=== PATIENT | female | born 1980 | race Caucasian/White ===

== ENCOUNTER 2018-10-15 15:48 | Emergency (ER) | payer SELFPAY ==
[~2018-10-15] VITALS: Ht 167.6 cm; Wt 108.9 kg
[2018-10-15] MEDS ORDERED: ESCI10TA PO (16:01)
[2018-10-15] MEDS ORDERED: BUPR-42 PO (16:01)
[2018-10-15] MEDS ORDERED: NS IV 1000 ML 1,000 ML IV ONE (16:09)
[2018-10-15 16:24] LABS: BASOPHILS % (AUTO) 0 % (0-10); EOSINOPHILS # (AUTO) 0.1 10^3/uL (0.0-0.3); EOSINOPHILS % (AUTO) 2 % (0-10); HEMATOCRIT 45 % (35-52); LYMPHOCYTES # (AUTO) 0.6 X 10^3 (1.0-4.0); LYMPHOCYTES % (AUTO) 8 % (12-44); MEAN CORPUSCULAR HEMOGLOBIN 29 PG (25-34); MEAN CORPUSCULAR HGB CONC 33 G/DL (32-36); MEAN CORPUSCULAR VOLUME 86 FL (80-99); MEAN PLATELET VOLUME 10.2 FL (7.4-10.4); MONOCYTES # (AUTO) 0.3 X 10^3 (0.0-1.0); MONOCYTES % (AUTO) 4 % (0-12); NEUTROPHILS % (AUTO) 86 % (42-75); PLATELET COUNT 224 10^3/uL (130-400); RED BLOOD COUNT 5.26 10^6/uL (4.35-5.85); RED CELL DISTRIBUTION WIDTH 13.5 % (10.0-14.5); WHITE BLOOD COUNT 6.9 10^3/uL (4.3-11.0)
[2018-10-15] MEDS ORDERED: ONDANSETRON 4 MG/2 ML (SDV) Z0FRAN IVP ONE (16:30)
[2018-10-15] MEDS ORDERED: fentaNYL INJECTION 100 MCG/2 ML AMP IVP ONE (16:30)
[2018-10-15 16:37] LABS: BILIRUBIN,URINE NEGATIVE (NEGATIVE); CLARITY,URINE CLEAR; COLOR,URINE YELLOW; GLUCOSE, URINE (UA) NEGATIVE (NEGATIVE); KETONES,URINE 2+ (NEGATIVE); LEUKOCYTE ESTERASE ,URINE 1+ (NEGATIVE); NITRITE,URINE NEGATIVE (NEGATIVE); PH,URINE 5 (5-9); PROTEIN,URINE 1+ (NEGATIVE); UROBILINOGEN,URINE 1 MG/DL (NORMAL)
[2018-10-15 16:46] LABS: ALANINE AMINOTRANSFERASE 15 U/L (0-55); ALBUMIN 4.2 GM/DL (3.2-4.5); ALKALINE PHOSPHATASE 101 U/L (40-136); BILIRUBIN,TOTAL 1.1 MG/DL (0.1-1.0); BUN/CREATININE RATIO 12; CALCIUM 9.1 MG/DL (8.5-10.1); CARBON DIOXIDE 23 MMOL/L (21-32); CHLORIDE 106 MMOL/L (98-107); CREATININE SERUM 0.69 MG/DL (0.60-1.30); GFR ESTIMATED > 60; GLUCOSE 93 MG/DL (70-105); LIPASE 10 U/L (8-78); SODIUM 138 MMOL/L (135-145); TOTAL PROTEIN 7.1 GM/DL (6.4-8.2)
--- NOTE | 2018-10-15 16:51 | ED Abdominal Pain ---
General Chief Complaint: Abdominal/GI Problems Stated Complaint: ABD PROBLEMS,NOT EATING/DRINKING Nursing Triage Note: pt presents to ed with complaints of malaise and hot/cold flashes starting 0100 today. Pt reports upper abdominal pain and nausea/diahrrea starting this am. Sepsis Screen: No Definite Risk Source of Information: Patient Exam Limitations: No Limitations History of Present Illness Date Seen by Provider: Oct 15, 2018 Time Seen by Provider: 16:00 Initial Comments This 37-year-old woman presents to the emergency room with complaints of upper abdominal pain. She began feeling "funny" last night around 01:00. Then abdominal pain and diaphoresis started later in the morning around 06:30. She has been having hot and cold flashes. She is nauseated without vomiting. She has diarrhea as well. Diarrhea does not improve her pain. She has not taken any medications for these symptoms. She reports no solid food since yesterday and very minimal water today. Allergies and Home Medications Allergies Coded Allergies: Penicillins (Verified Allergy, Unknown, 10/15/18) Home Medications Ondansetron 4 Mg Tab.rapdis, 4 MG SL Q4H Prescribed by: GENE MARTINES on 10/15/18 4916 Patient Home Medication List Home Medication List Reviewed: Yes Review of Systems Review of Systems Constitutional: see HPI EENTM: No Symptoms Reported Respiratory: No Symptoms Reported Cardiovascular: No Symptoms Reported Gastrointestinal: See HPI Genitourinary: No Symptoms Reported Musculoskeletal: no symptoms reported Skin: no symptoms reported Psychiatric/Neurological: No Symptoms Reported Endocrine: No Symptoms Reported Hematologic/Lymphatic: No Symptoms Reported Past Bfmbluq-Ustews-Jrqrce Hx Past Med/Social Hx: Reviewed Nursing Past Med/Soc Hx Patient Social History Alcohol Use: Denies Use Recreational Drug Use: No Smoking Status: Never a Smoker Recent Foreign Travel: No Contact w/Someone Who Travel: No Recent Infectious Disease Expo: No Recent Hopitalizations: No Seasonal Allergies Seasonal Allergies: No Past Medical History Surgeries: Yes Section Respiratory: No Cardiac: No Neurological: No : No Last Menstrual Period: Oct 15, 2018 Genitourinary: Yes Kidney Stones Gastrointestinal: No Musculoskeletal: No Endocrine: No HEENT: No Cancer: No Psychosocial: Yes Depression Integumentary: No Blood Disorders: No Adverse Reaction/Blood Tranf: No Physical Exam Vital Signs Vital Signs - First Documented 10/15/18 10/15/18 15:55 17:44 Temp 98.4 Pulse 102 Resp 16 B/P (MAP) 118/72 (87) Pulse Ox 100 O2 Delivery Room Air Capillary Refill : Less Than 3 Seconds Height/Weight/BMI Height: 5'6.00" Weight: 240lbs. oz. 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, no motor/sensory deficits, alert, normal mood/affect, oriented x 3 Skin: normal color, warm/dry Progress/Results/Core Measures Results/Orders Lab Results Laboratory Tests Test 10/15/18 16:15 10/15/18 16:23 Range/Units White Blood Count 6.9 4.3-11.0 10^3/uL Red Blood Count 5.26 4.35-5.85 10^6/uL Hemoglobin 15.0 11.5-16.0 G/DL Hematocrit 45 35-52 % Mean Corpuscular Volume 86 80-99 FL Mean Corpuscular Hemoglobin 29 25-34 PG Mean Corpuscular Hemoglobin Concent 33 32-36 G/DL Red Cell Distribution Width 13.5 10.0-14.5 % Platelet Count 224 130-400 10^3/uL Mean Platelet Volume 10.2 7.4-10.4 FL Neutrophils (%) (Auto) 86 H 42-75 % Lymphocytes (%) (Auto) 8 L 12-44 % Monocytes (%) (Auto) 4 0-12 % Eosinophils (%) (Auto) 2 0-10 % Basophils (%) (Auto) 0 0-10 % Neutrophils # (Auto) 6.0 1.8-7.8 X 10^3 Lymphocytes # (Auto) 0.6 L 1.0-4.0 X 10^3 Monocytes # (Auto) 0.3 0.0-1.0 X 10^3 Eosinophils # (Auto) 0.1 0.0-0.3 10^3/uL Basophils # (Auto) 0.0 0.0-0.1 10^3/uL Neutrophils % (Manual) 81 % Lymphocytes % (Manual) 5 % Monocytes % (Manual) 5 % Eosinophils % (Manual) 3 % Basophils % (Manual) 0 % Band Neutrophils 3 % Reactive Lymphocytes 3 % Toxic Granulation 3+ Blood Morphology Comment NORMAL Sodium Level 138 135-145 MMOL/L Potassium Level 4.0 3.6-5.0 MMOL/L Chloride Level 106 98-107 MMOL/L Carbon Dioxide Level 23 21-32 MMOL/L Anion Gap 9 5-14 MMOL/L Blood Urea Nitrogen 8 7-18 MG/DL Creatinine 0.69 0.60-1.30 MG/DL Estimat Glomerular Filtration Rate > 60 BUN/Creatinine Ratio 12 Glucose Level 93 70-105 MG/DL Calcium Level 9.1 8.5-10.1 MG/DL Corrected Calcium 8.9 8.5-10.1 MG/DL Total Bilirubin 1.1 H 0.1-1.0 MG/DL Aspartate Amino Transf (AST/SGOT) 15 5-34 U/L Alanine Aminotransferase (ALT/SGPT) 15 0-55 U/L Alkaline Phosphatase 101 40-136 U/L Total Protein 7.1 6.4-8.2 GM/DL Albumin 4.2 3.2-4.5 GM/DL Lipase 10 8-78 U/L Serum Test, Qualitative NEGATIVE NEGATIVE Urine Color YELLOW Urine Clarity CLEAR Urine pH 5 5-9 Urine Specific [place] 1.020 1.016-1.022 Urine Protein 1+ H NEGATIVE Urine Glucose (UA) NEGATIVE NEGATIVE Urine Ketones 2+ H NEGATIVE Urine Nitrite NEGATIVE NEGATIVE Urine Bilirubin NEGATIVE NEGATIVE Urine Urobilinogen 1 NORMAL MG/DL Urine Leukocyte Esterase 1+ H NEGATIVE Urine RBC (Auto) 5+ H NEGATIVE Urine RBC >100 H /HPF Urine WBC 2-5 /HPF Urine Squamous Epithelial Cells 0-2 /HPF Urine Crystals NONE /LPF Urine Bacteria FEW H /HPF Urine Casts NONE /LPF Urine Mucus NEGATIVE /LPF Urine Culture Indicated NO My Orders Orders - GENE BOWIE MD Gallbladder [id number] (10/15/18 16:08) Cbc With Automated Diff (10/15/18 16:09) Comprehensive Metabolic Panel (10/15/18 16:09) Hcg,Qualitative Serum (10/15/18 16:09) Lipase (10/15/18 16:09) Ua Culture If Indicated (10/15/18 16:09) Saline Lock/Iv-Start (10/15/18 16:09) Ns Iv 1000 Ml (Sodium Chloride 0.9%) (10/15/18 16:09) Ondansetron Injection (Zofran Injectio (10/15/18 16:30) Fentanyl Injection (Sublimaze Injection (10/15/18 16:30) Lidocaine 2% Viscous 15 Ml (Xylocaine Vi (10/15/18 17:30) Antacid Suspension (Mylanta Suspension (10/15/18 17:30) Famotidine Injection (Pepcid Injection) (10/15/18 17:17) Manual Differential (10/15/18 16:15) Medications Given in ED Vital Signs/I&O 10/15/18 10/15/18 15:55 17:44 Temp 98.4 98.6 Pulse 102 83 Resp 16 13 B/P (MAP) 118/72 (87) 133/77 (95) Pulse Ox 100 100 O2 Delivery Room Air Blood Pressure Mean: 87 Progress Progress Note #1: Time: 16:30 Progress Note Patient received fentanyl and Zofran for her symptoms. IV fluids were initiated. Labs were ordered along with a gallbladder ultrasound for further assessment. Progress Note #2: Progress Note Gallbladder ultrasound was obtained. No pathology was identified. Patient was further treated with Pepcid and GI cocktail. She was dismissed in improved condition. Diagnostic Imaging Diagonstic Imaging: Ultrasound Plain Films/CT/US/NM/MRI: abdomen Comments NAME: IRENE COUCH [facility] REC#: [id number] PT STATUS: DEP ER : 1980 PHYSICIAN: GENE BOWIE MD ADMIT DATE: 10/15/18/ER Signed Date of Exam: 10/15/18 US GALLBLADDER [id number] PROCEDURE: US Gallbladder. TECHNIQUE: Multiple real-time grayscale images were obtained over the right upper quadrant in various projections. INDICATION: Abdominal pain. COMPARISON: None available. FINDINGS: Liver: Normal in size and echotexture. No focal lesion is seen. Gallbladder: Normal. No stones or gallbladder wall thickening. No pericholecystic fluid. Negative sonographic Weber's sign. Biliary Tree: No intrahepatic or extrahepatic bile duct dilation is identified. The proximal common bile duct measures 0.3 cm in diameter. Pancreas: No abnormality in the visualized portions of the pancreas. The distal body and tail are not well seen. Right kidney: Normal parenchymal echotexture and thickness. No hydronephrosis, stone or mass. Incidental note is made of a hypoechoic 1.4 x 1.6 x 1.3 cm lesion in the superior pole, with increased through transmission of sound, likely representing a cyst. IMPRESSION: Abdominal ultrasound is within normal limits. Incidental node is made of a probable right upper pole renal cyst. Dictated by: Dictated on workstation # [id number] Dict: 10/15/189 Trans: 10/15/182357 Interpreted by: SURENDRA INMAN DO Electronically signed by: SURENDRA INMAN DO 10/15/18 Departure Impression Primary Impression: Nausea vomiting and diarrhea Additional Impression: Epigastric pain Disposition: 01 HOME, SELF-CARE Condition: Improved Departure-Patient Inst. Decision time for Depature: 17:34 Referrals: NO,LOCAL PHYSICIAN (PCP/Family) Primary Care Physician Patient Instructions: Acute Abdomen (Belly Pain), Adult (DC), Viral Gastroenteritis Add. Discharge Instructions: Drink clear liquids tonight. If you're feeling better tomorrow, gradually advance your diet with small quantities of bland food as tolerated. Use Zofran (ondansetron) as prescribed for nausea and vomiting. Return to care if you have worsening symptoms. If needed, you may use an antacid medication such as Tums, omeprazole, and/or Pepcid. All discharge instructions reviewed with patient and/or family. Voiced understanding. Scripts Ondansetron (Ondansetron Odt) 4 Mg Tab.rapdis 4 MG SL Q4H, #10 TAB Prov: GENE BOWIE MD 10/15/18 Work/School Note: Work Release Form Date Seen in the Emergency Department: Oct 15, 2018 Return to Work: Oct 17, 2018 Restrictions: No Restrictions GENE BOWIE MD Oct 15, 2018 16:51
[2018-10-15 17:03] LABS: BACTERIA,URINE FEW /HPF; RBC,URINE >100 /HPF; SQUAMOUS EPITHELIAL CELL,UR 0-2 /HPF
[2018-10-15] MEDS ORDERED: FAMOTIDINE 20MG/2ML IV (PEPCID) IV STA (17:17)
--- NOTE | 2018-10-15 17:27 | Diagnostic Imaging Report ---
PROCEDURE: US Gallbladder. TECHNIQUE: Multiple real-time grayscale images were obtained over the right upper quadrant in various projections. INDICATION: Abdominal pain. COMPARISON: None available. FINDINGS: Liver: Normal in size and echotexture. No focal lesion is seen. Gallbladder: Normal. No stones or gallbladder wall thickening. No pericholecystic fluid. Negative sonographic Weber's sign. Biliary Tree: No intrahepatic or extrahepatic bile duct dilation is identified. The proximal common bile duct measures 0.3 cm in diameter. Pancreas: No abnormality in the visualized portions of the pancreas. The distal body and tail are not well seen. Right kidney: Normal parenchymal echotexture and thickness. No hydronephrosis, stone or mass. Incidental note is made of a hypoechoic 1.4 x 1.6 x 1.3 cm lesion in the superior pole, with increased through transmission of sound, likely representing a cyst. IMPRESSION: Abdominal ultrasound is within normal limits. Incidental node is made of a probable right upper pole renal cyst. Dictated by: Dictated on workstation # [id number]
[2018-10-15] MEDS ORDERED: LIDOCAINE 2% VISCOUS 15 ML UDC PO ONE (17:30)
[2018-10-15] MEDS ORDERED: ANTACID SUSP 30 ML UDC (MYLANTA) PO ONE (17:30)
[2018-10-15] MEDS ORDERED: ONDA4TAB11 SL (17:35)
[2018-10-15 17:44] VITALS: BP 133/77
--- OUTSIDE RECORDS SUMMARY | 2018-10-16 07:45 | XMS REPORT | CCD ---
Author Author GRACIA NGUYEN Unknown Address [address] [facility] [address] [place], [place] [id number] Care Team Providers Care Accounts Payable Accountant Name Role Phone STIVEN ROSE, SURENDRA Powell SURENDRA SALEEM MD Vital Signs Unknown or Not Available. Allergies Allergy Code Allergy Type Reaction Status Unknown Code - 0 0 Propensity to adverse reactions Active PCN (penicillin) 0 Drug allergy Active PENICILLIN 96875 Drug allergy HIVES Active Procedures Unknown or Not Available. History of Immunizations Immunization Code Date MMR 03 01/21/1992 Td (adult), adsorbed 09 03/25/1996 Hep B, adult 43 10/10/2001 Novel [id number] 127 09/02/2009 Problems Unknown or Not Available. Results Unknown or Not Available. Active Medications Unknown or Not Available. Medications Administered During Visit Unknown or Not Available. Encounters Encounter Diagnosis Diagnosis Code Start Date Infestation by Sarcoptes scabiei shanna hominis [id number] 2015 Social History Smoking Status Code Start Date End Date Never smoker 598821587 Patient Decision Aids Unknown or Not Available. Discharge Instructions You were admitted to [facility] on 08/03/2016 12:49 with a principal diagnosis of Scabies You were discharged from [facility] on 08/03/2016 13:34 Should you have any questions prior to discharge, please contact a member of your healthcare team. If you have left the hospital and have any questions, please contact your primary care physician. Chief Complaint and Reason For Visit Chief Complaint Date of Onset RASH Function Status Unknown or Not Available. Referral/Transition of Care Unknown or Not Available.
--- OUTSIDE RECORDS SUMMARY | 2018-10-16 07:46 | XMS REPORT ---
Author Author COLE HENSON [facility] Address [address] [place] [address] Care Team Providers Care Director Financial Systems Name Role Phone COLE HENSON Unavailable PROBLEMS Type Condition ICD9-CM Code APM90-ZL Code Onset Dates Condition Status SNOMED Code Problem Surveillance of previously prescribed intrauterine contraceptive device V25.42 Active 205408182177098 Problem Special screening examination, human papillomavirus [HPV] V73.81 Active 368527607 Problem MMR DX V06.4 Active Problem Major depressive disorder, single episode, moderate F32.1 Active 85023573 Problem Nausea R11.0 Active 262543617 Problem Encounter for IUD removal Z30.432 Active 133452596 Problem Routine gynecological examination V72.31 Active 531119162824360 Problem Tension headache G44.209 Active 261529309 Problem Fatigue R53.83 Active 59004171 Problem DTAP TEST V06.1 Active Problem VARICELLA DX V05.4 Active 408782699 Problem Health examination of defined subpopulation V70.5 Active 815265131 Problem Obesity, unspecified 278.00 Active 877250198 Problem Major depressive disorder, recurrent episode, moderate 296.32 Active 98350035 Problem STATE HEP A (ADULT) DX V05.3 Active 837803232 Problem Major depressive disorder, single episode, moderate 296.22 Active 55999549 Problem Depressive disorder, not elsewhere classified 311 Active 03406430 Problem Screening for malignant neoplasm of the cervix V76.2 Active 504040186 ALLERGIES Substance Reaction Event Type Date Status Penicillins rash Non Drug Allergy Jan, Active Zoloft 100 Mg Tablet Yawning and Sedation Non Drug Allergy Jan, Active ENCOUNTERS Encounter Location Date Diagnosis [facility] [place] [id number] [address] Feb BCP ( control pills) initiation Z30.011 and BMI 40.0-44.9, adult Z68.41 [facility] [place] [address] [id number] [place] [address] Jan Moderate episode of recurrent major depressive disorder F33.1 and control counseling Z30.09 [facility] [place] [address] [id number] [place] [address] Dec [facility] [place] [address] [id number] [place] [address] Dec Major depressive disorder, single episode, moderate F32.1 [facility] [place] [address] [id number] [place] [address] Jul [facility] [place] [address] [id number] [place] [address] Jul Bladder pain R39.89 and Major depressive disorder, single episode, moderate F32.1 [facility] [address] [place], [place] [id number] [address] May, [facility] [address] [facility] [id number] [place] [address] May, [facility] [place] [address] [id number] [place] [address] May Negative test Z32.02 ; Moderate episode of recurrent major depressive disorder F33.1 ; Nausea R11.0 and Other fatigue R53.83 [facility] [place] [address] [id number] [place] [address] Jan Trapezius muscle strain, right, initial encounter S46.811A and Trapezius muscle strain, left, initial encounter S46.812A [facility] [place] [address] [id number] [place] [address] Dec Tension headache G44.209 [facility] [place] [address] [id number] [place] [address] Feb [facility] [address] [id number] [place] [address] Jan [facility] [place] [address] [id number] [place] [address] Jan Routine gynecological examination V72.31 ; Fatigue R53.83 ; Encounter for IUD removal Z30.432 and Acute vaginitis N76.0 [facility] [address] [address] 14 Feb, 2015 [facility] [place] [address] [facility] [id number] [address] 13 Feb, 2015 [facility] [id number] [place] [address] Sep, [facility] [place] [address] [facility] [id number] [address] Sep, [facility] [place] [id number] [place] [address] Aug, [facility] [id number] [place] [address] Aug, [facility] [id number] [place] [address] Jul, [facility] [address], [place] [address] Jul, [facility] [address], [place] [address] Apr, [facility] [address], [place] [address] Apr, [facility] [address], [place] [address] Jan, [facility] [address] [id number], [place] [address] Jan, [facility] [address], [place] [address] Nov, [facility] [place] [address] [facility] [id number], [place] [address] Nov, [facility] [id number] [place] [address] Sep, [facility] [id number], [place] [address] Sep, [facility] [address], [place] [address] Jul, [facility] [address] [id number], [place] [address] Jun, [facility] [address], [place] [address] Apr, [facility] [address], [place] [address] March, [facility] [id number] [place] [address] March, [facility] [address], [place] [address] March, [facility] [address], [place] [address] March, [facility] [address] [id number], [place] [address] Jun, IMMUNIZATIONS No Known Immunizations SOCIAL HISTORY Never Assessed REASON FOR VISIT Depression follow up.HAO Gomez PLAN OF CARE Activity Details Follow Up 2 Weeks Reason:f/u control VITAL SIGNS Height 65.5 in 2018-01-15 Weight 248.5 lbs 2018-01-15 Temperature 97.6 degrees Fahrenheit 2018-01-15 Heart Rate 74 bpm 2018-01-15 Respiratory Rate 12 2018-01-15 Oximetry 100 % 2018-01-15 BMI 40.72 kg/m2 2018-01-15 Blood pressure systolic 108 mmHg 2018-01-15 Blood pressure diastolic 72 mmHg 2018-01-15 MEDICATIONS Medication Instructions Dosage Frequency Start Date End Date Duration Status Wellbutrin SR 150 MG Orally Once a day 1 Tablet by Oral route 1 time per day for depression 24h Aug, 30 days Active Naprosyn 500 mg 1 tablet by Oral route 2 times per day PRN as needed for pain Apr, Not-Taking Lexapro 20 mg Orally Once a day 0.5 tablet daily x 2 weeks then 1 tab 24h 13 Dec, 2017 30 days Active cetirizine 10 mg 1 Tablet by Oral route 1 time per day Sep, Not-Taking BuPROPion HCl ER (SR) 150 MG TAKE 1 TABLET BY MOUTH ONCE DAILY FOR DEPRESSION 30 Not-Taking RESULTS No Results PROCEDURES No Known procedures INSTRUCTIONS MEDICATIONS ADMINISTERED No Known Medications MEDICAL (GENERAL) HISTORY Type Description Date Medical History depression Surgical History sectionX2 Hospitalization History child Hospitalization History dehydration Hospitalization History complications
--- OUTSIDE RECORDS SUMMARY | 2018-10-16 07:46 | XMS REPORT ---
Author Author COLE HENSON [facility] Address [address] [place] [address] Care Team Providers Care Oil Sales And Service Rep Name Role Phone COLE HENSON Unavailable PROBLEMS Type Condition ICD9-CM Code [id number] Code Onset Dates Condition Status SNOMED Code Problem Surveillance of previously prescribed intrauterine contraceptive device V25.42 Active [id number] Problem Special screening examination, human papillomavirus [HPV] V73.81 Active 922256937 Problem MMR DX V06.4 Active Problem Major depressive disorder, single episode, moderate F32.1 Active 82520079 Problem Nausea R11.0 Active 909740443 Problem Encounter for IUD removal Z30.432 Active 294994861 Problem Routine gynecological examination V72.31 Active 224370287070391 Problem Tension headache G44.209 Active 064529376 Problem Fatigue R53.83 Active 65414122 Problem DTAP TEST V06.1 Active Problem VARICELLA DX V05.4 Active 657632206 Problem Health examination of defined subpopulation V70.5 Active 116728159 Problem Obesity, unspecified 278.00 Active 206301188 Problem Major depressive disorder, recurrent episode, moderate 296.32 Active 35609069 Problem STATE HEP A (ADULT) DX V05.3 Active 824953818 Problem Major depressive disorder, single episode, moderate 296.22 Active 38929990 Problem Depressive disorder, not elsewhere classified 311 Active 25269819 Problem Screening for malignant neoplasm of the cervix V76.2 Active 803959746 ALLERGIES Substance Reaction Event Type Date Status Penicillins rash Non Drug Allergy May, Active Zoloft 100 Mg Tablet Yawning and Sedation Non Drug Allergy May, Active ENCOUNTERS Encounter Location Date Diagnosis [facility] [address] [id number] [place] [address] 13 Jan Moderate episode of recurrent major depressive disorder F33.1 and control counseling Z30.09 [facility] [address] [id number] [place] [address] [facility] [address] [id number] [place] [address] Dec Major depressive disorder, single episode, moderate F32.1 [facility] [address] [id number] [place] [address] [facility] [address] [id number] [place] [address] Jul Bladder pain R39.89 and Major depressive disorder, single episode, moderate F32.1 [facility] [address] [facility] [id number] [place] [address] May, [facility] [address] [id number] [place] [address] May, [facility] [address] [id number] [place] [address] May Negative test Z32.02 ; Moderate episode of recurrent major depressive disorder F33.1 ; Nausea R11.0 and Other fatigue R53.83 [facility] [address] [id number] [place] [address] Jan Trapezius muscle strain, right, initial encounter S46.811A and Trapezius muscle strain, left, initial encounter S46.812A [facility] [address] [id number] [place] [address] Dec Tension headache G44.209 [facility] [address] [id number] [place] [address] [facility] [place] [address] [id number] [place] [address] [facility] [address] [id number] [place] [address] Jan Routine gynecological examination V72.31 ; Fatigue R53.83 ; Encounter for IUD removal Z30.432 and Acute vaginitis N76.0 [facility] [address] [facility] [id number] [place] [address] Feb, [facility] [place] [facility] [address] [id number] [place] [address] Feb, [facility] [place] [facility] [address] [id number] [place] [address] Sep, [facility] [place] [facility] [address] [id number] [place] [address] Sep, [facility] [place] [facility] [address] [id number] [place] [address] Aug, [facility] [place] [facility] [address] [id number] [place] [address] Aug, [facility] [place] [facility] [address] [id number] [place] [address] Jul, [facility] [place] [facility] [address] [id number] [place] [address] Jul, [facility] [place] [facility] [address] [id number] [place] [address] Apr, [facility] [place] [facility] [address] [id number] [place] [address] Apr, [facility] [place] [facility] [address] [id number] [place] [address] Jan, [facility] [place] [facility] [address] [id number] [place] [address] Jan, [facility] [place] [facility] [address] [id number] [place] [address] Nov, [facility] [place] [facility] [address] [id number] [place] [address] Nov, [facility] [place] [facility] [address] [id number] [place] [address] Sep, [facility] [place] [facility] [address] [id number] [place] [address] Sep, [facility] [place] [facility] [address] [id number] [address] Jul, [facility] [address] [id number], [place] [address] Jun, [facility] [address] [id number], [place] [address] Apr, [facility] [address] [id number], [place] [address] March, [facility] [address] [id number], [place] [address] March, [facility] [address] [id number], [place] [address] March, [facility] [address] [id number], [place] [address] March, [facility] [address] [id number], [place] [address] Jun, IMMUNIZATIONS No Known Immunizations SOCIAL HISTORY Never Assessed REASON FOR VISIT Depression, Pt took a test last months it was negative, but showing signs. HAO Gomez PLAN OF CARE Activity Details Follow Up 4 Weeks Reason:depression VITAL SIGNS Height 65.5 in 2017-05-25 Weight 236.1 lbs 2017-05-25 Temperature 98.9 degrees Fahrenheit 2017-05-25 Heart Rate 72 bpm 2017-05-25 Respiratory Rate 20 2017-05-25 BMI 38.69 kg/m2 2017-05-25 Blood pressure systolic 108 mmHg 2017-05-25 Blood pressure diastolic 68 mmHg 2017-05-25 MEDICATIONS Unknown Medications RESULTS No Results PROCEDURES Procedure Date Ordered Result Body Site URINE TEST May 25, 2017 CHORIONIC GONADOTROPIN ASSAY May 25, 2017 COMPREHEN METABOLIC PANEL May 25, 2017 COMPLETE CBC W/AUTO DIFF WBC May 25, 2017 VENIPUNCT, ROUTINE* May 25, 2017 ASSAY THYROID STIM HORMONE May 25, 2017 INSTRUCTIONS MEDICATIONS ADMINISTERED No Known Medications MEDICAL (GENERAL) HISTORY Type Description Date Medical History depression Surgical History sectionX2 Hospitalization History child Hospitalization History dehydration Hospitalization History complications
--- OUTSIDE RECORDS SUMMARY | 2018-10-16 07:46 | XMS REPORT ---
Author Author [facility] Address [address] [place] [address] Care Team Providers Care Manager Video Name Role Phone COLE HENSON Unavailable PROBLEMS Type Condition ICD9-CM Code [id number] Code Onset Dates Condition Status SNOMED Code Problem Surveillance of previously prescribed intrauterine contraceptive device V25.42 Active 444393159660780 Problem Special screening examination, human papillomavirus [HPV] V73.81 Active 236350028 Problem MMR DX V06.4 Active Problem Major depressive disorder, single episode, moderate F32.1 Active 83831657 Problem Nausea R11.0 Active 467563888 Problem Encounter for IUD removal Z30.432 Active 891893004 Problem Routine gynecological examination V72.31 Active 717297601778318 Problem Tension headache G44.209 Active 854456200 Problem Fatigue R53.83 Active 19707121 Problem DTAP TEST V06.1 Active Problem VARICELLA DX V05.4 Active 911765948 Problem Health examination of defined subpopulation V70.5 Active 434256833 Problem Obesity, unspecified 278.00 Active 602819590 Problem Major depressive disorder, recurrent episode, moderate 296.32 Active 25730015 Problem STATE HEP A (ADULT) DX V05.3 Active 530615456 Problem Major depressive disorder, single episode, moderate 296.22 Active 87534724 Problem Depressive disorder, not elsewhere classified 311 Active 47803894 Problem Screening for malignant neoplasm of the cervix V76.2 Active 131937247 ALLERGIES No Information ENCOUNTERS Encounter Location Date Diagnosis [facility] [address] [id number] [place] [address] 13 Jan Moderate episode of recurrent major depressive disorder F33.1 and control counseling Z30.09 [facility] [address] [id number] [place] [address] 13 Dec [facility] [address] [id number] [place] [address] Dec Major depressive disorder, single episode, moderate F32.1 [facility] [place] [address] [id number] [place] [address] Jul [facility] [address] [id number] [place] [address] Jul Bladder pain R39.89 and Major depressive disorder, single episode, moderate F32.1 [facility] [address] [place], [place] [id number] [place] [address] May, [facility] [address] [id number] [address] May, [facility] [address] [id number] [place] [address] May Negative test Z32.02 ; Moderate episode of recurrent major depressive disorder F33.1 ; Nausea R11.0 and Other fatigue R53.83 [facility] [place] [address] [id number] [place] [address] Jan Trapezius muscle strain, right, initial encounter S46.811A and Trapezius muscle strain, left, initial encounter S46.812A [facility] [place] [address] [id number] [place] [address] Dec Tension headache G44.209 [facility] [place] [address] [id number] [place] [address] Feb [facility] [address] [id number] [place] [address] Jan [facility] [address] [id number] [place] [address] Jan Routine gynecological examination V72.31 ; Fatigue R53.83 ; Encounter for IUD removal Z30.432 and Acute vaginitis N76.0 [facility] [address] [id number] [place] [address] Feb, [facility] [address] [id number] [address] Feb, [facility] [place] [facility] [address] [id number] [place] [address] Sep, [facility] [place] [facility] [address] [id number] [place] [address] Sep, [facility] [place] [facility] [address] [id number] [place] [address] Aug, [facility] [place] [facility] [address] [id number] [place] [address] Aug, [facility] [place] [facility] [address] [id number] [place] [address] Jul, [facility] [place] [facility] [address] [id number] [place] [address] Jul, [facility] [place] [facility] [address] [id number] [place] [address] Apr, [facility] [place] [facility] [address] [id number] [place] [address] Apr, [facility] [place] [facility] [address] [id number] [place] [address] Jan, [facility] [place] [facility] [address] [id number] [place] [address] Jan, [facility] [place] [facility] [address] [facility] [id number] [address] Nov, [facility] [place] [facility] [address] [id number][place] [address] Nov, [facility] [place] [facility] [address] [id number] [place] [address] Sep, [facility] [place] [facility] [address] [id number] [place] [address] Sep, [facility] [place] [facility] [address] [facility] [id number][place] [address] Jul, [facility] [place] [facility] [address] [id number][place] [address] Jun, [facility] [address] [id number] [address] Apr, [facility] [address] [id number], [place] [address] March, [facility] [address] [id number], [place] [address] March, [facility] [address] [id number], [place] [address] March, [facility] [address] [id number], [place] [address] March, [facility] [address] [id number], [place] [address] Jun, IMMUNIZATIONS No Known Immunizations SOCIAL HISTORY Never Assessed REASON FOR VISIT requesting medication PLAN OF CARE VITAL SIGNS MEDICATIONS Medication Instructions Dosage Frequency Start Date End Date Duration Status Wellbutrin SR 150 mg Orally Once a day 1 Tablet by Oral route 1 time per day for depression 24h Aug, 30 days Active Zoloft 50 mg Orally Once a day 1 tablet 24h Aug, 30 days Active RESULTS No Results PROCEDURES No Known procedures INSTRUCTIONS MEDICATIONS ADMINISTERED No Known Medications MEDICAL (GENERAL) HISTORY Type Description Date Medical History depression Surgical History sectionX2 Hospitalization History child Hospitalization History dehydration Hospitalization History complications
--- OUTSIDE RECORDS SUMMARY | 2018-10-16 07:46 | XMS REPORT ---
Author Author [facility] Address [address] [place] [address] Care Team Providers Care Transcription Name Role Phone COLE HENSON Unavailable PROBLEMS Type Condition ICD9-CM Code FTS43-RP Code Onset Dates Condition Status SNOMED Code Problem MMR DX V06.4 Active Problem Routine gynecological examination V72.31 Active [id number] Problem Special screening examination, human papillomavirus [HPV] V73.81 Active 141057265 Problem Major depressive disorder, single episode, moderate F32.1 Active 70941006 Problem Nausea R11.0 Active 149190814 Problem Fatigue R53.83 Active 19605688 Problem Encounter for IUD removal Z30.432 Active 521807897 Problem Moderate episode of recurrent major depressive disorder F33.1 Active 453265334 Problem Tension headache G44.209 Active 442290860 Problem VARICELLA DX V05.4 Active Problem STATE HEP A (ADULT) DX V05.3 Active 108150236 Problem Health examination of defined subpopulation V70.5 Active 346028521 Problem DTAP TEST V06.1 Active Problem Major depressive disorder, recurrent episode, moderate 296.32 Active 95498207 Problem Major depressive disorder, single episode, moderate 296.22 Active 87526446 Problem Depressive disorder, not elsewhere classified 311 Active 96646970 Problem Screening for malignant neoplasm of the cervix V76.2 Active 856010511 Problem Obesity, unspecified 278.00 Active 165117286 Problem Surveillance of previously prescribed intrauterine contraceptive device V25.42 Active 614128283884852 ALLERGIES Substance Reaction Event Type Date Status Penicillins rash Non Drug Allergy Jan, Active Zoloft 100 Mg Tablet Yawning and Sedation Non Drug Allergy Jan, Active SOCIAL HISTORY Never Assessed PLAN OF CARE Activity Details Follow Up prn Reason: VITAL SIGNS Height 65.5 in 2017-01-22 Weight 256.6 lbs 2017-01-22 Temperature 98.7 degrees Fahrenheit 2017-01-22 Heart Rate 86 bpm 2017-01-22 Respiratory Rate 20 2017-01-22 BMI 42.05 kg/m2 2017-01-22 Blood pressure systolic 124 mmHg 2017-01-22 Blood pressure diastolic 68 mmHg 2017-01-22 MEDICATIONS Medication Instructions Dosage Frequency Start Date End Date Duration Status Cyclobenzaprine HCl 10 mg Orally Three times a day 1 tablet as needed 8h Jan, Feb, 30 days Active RESULTS No Results PROCEDURES No Known procedures IMMUNIZATIONS No Known Immunizations MEDICAL (GENERAL) HISTORY Type Description Date Medical History depression Surgical History section Hospitalization History child Hospitalization History dehydration Hospitalization History complications
--- OUTSIDE RECORDS SUMMARY | 2018-10-16 07:46 | XMS REPORT ---
Author Author COLE HENSON [facility] Address [address] [place] [address] Care Team Providers Care Blind Eyeletter Name Role Phone COLE HENSON Unavailable PROBLEMS Type Condition ICD9-CM Code ANA53-BT Code Onset Dates Condition Status SNOMED Code Problem Surveillance of previously prescribed intrauterine contraceptive device V25.42 Active 362335623022303 Problem Special screening examination, human papillomavirus [HPV] V73.81 Active 781239576 Problem MMR DX V06.4 Active Problem Major depressive disorder, single episode, moderate F32.1 Active 59131114 Problem Nausea R11.0 Active 964947668 Problem Encounter for IUD removal Z30.432 Active 150185612 Problem Routine gynecological examination V72.31 Active 092595217801262 Problem Tension headache G44.209 Active 155807992 Problem Fatigue R53.83 Active 20734385 Problem DTAP TEST V06.1 Active Problem VARICELLA DX V05.4 Active 186117258 Problem Health examination of defined subpopulation V70.5 Active 186107670 Problem Obesity, unspecified 278.00 Active 113178900 Problem Major depressive disorder, recurrent episode, moderate 296.32 Active 68385360 Problem STATE HEP A (ADULT) DX V05.3 Active 973361178 Problem Major depressive disorder, single episode, moderate 296.22 Active 03710402 Problem Depressive disorder, not elsewhere classified 311 Active 22712697 Problem Screening for malignant neoplasm of the cervix V76.2 Active 434188569 ALLERGIES Substance Reaction Event Type Date Status Penicillins rash Non Drug Allergy Dec, Active Zoloft 100 Mg Tablet Yawning and Sedation Non Drug Allergy 13 Dec, 2017 Active ENCOUNTERS Encounter Location Date Diagnosis [facility] [address] [id number] [place] [address] Feb 2018 BCP ( control pills) initiation Z30.011 and BMI 40.0-44.9, adult Z68.41 [facility] [address] [id number] [place] [address] Jan Moderate episode of recurrent major depressive disorder F33.1 and control counseling Z30.09 [facility] [place] [address] [id number] [place] [address] Dec [facility] [place] [address] [id number] [place] [address] Dec Major depressive disorder, single episode, moderate F32.1 [facility] [place] [address] [id number] [place] [address] Jul [facility] [place] [address] [id number] [place] [address] Jul Bladder pain R39.89 and Major depressive disorder, single episode, moderate F32.1 [facility] [address] [facility] [id number] [place] [address] May, [facility] [place] [address] [facility] [id number] [place] [address] May, [facility] [place] [address] [id number] [place] [address] May Negative test Z32.02 ; Moderate episode of recurrent major depressive disorder F33.1 ; Nausea R11.0 and Other fatigue R53.83 [facility] [place] [address] [id number] [place] [address] Jan Trapezius muscle strain, right, initial encounter S46.811A and Trapezius muscle strain, left, initial encounter S46.812A [facility] [place] [address] [id number] [place] [address] Dec Tension headache G44.209 [facility] [place] [address] [id number] [place] [address] Feb [facility] [address] [id number] [place] [address] Jan [facility] [place] [address] [id number] [place] [address] 29 Mar , 2016 Routine gynecological examination V72.31 ; Fatigue R53.83 ; Encounter for IUD removal Z30.432 and Acute vaginitis N76.0 [facility] [place] [id number] [place] [address] 14 Feb, 2015 [facility] [place] [address] [facility] [id number] [address] Feb, [facility] [place] [address] [facility] [id number] [place] [address] Sep, [facility] [place] [address] [facility] [id number] [place] [address] Sep, [facility] [place] [id number] [place] [address], [place] [address] Aug, [facility] [place] [id number] [place] [address] Aug, [facility] [place] [id number] [place] [address] Jul, [facility] [place] [address] [place] [address] Jul, [facility] [place] [address] [place] [address] Apr, [facility] [place] [address], [place] [address] Apr, [facility] [place] [address], [place] [address] Jan, [facility] [place] [address] [facility] [id number][place] [address] Jan, [facility] [place] [id number] [place] [address] Nov, [facility] [place] [address] [facility] [id number][place] [address] Nov, [facility] [place] [id number] [place] [address] 07 Sep, 2013 [facility] [place] [address] [id number] [address] Sep, [facility] [place] [address], [place] [address] Jul, [facility] [place] [address], [place] [address] Jun, [facility] [place] [address], [place] [address] Apr, [facility] [place] [address], [place] [address] March, [facility] [place] [address], [place] [address] March, [facility] [place] [address], [place] [address] March, [facility] [place] [address], [place] [address] March, [facility] [place] [address] [id number] [address] Jun, IMMUNIZATIONS No Known Immunizations SOCIAL HISTORY Never Assessed REASON FOR VISIT Depression. Pt reports increase in different stressors and states that medcations are working in some areas, but not others. eva RN PLAN OF CARE Activity Details Follow Up 4 Weeks Reason:f/u depression VITAL SIGNS Height 65.5 in 2017-12-18 Weight 235.6 lbs 2017-12-18 Temperature 97.7 degrees Fahrenheit 2017-12-18 Heart Rate 88 bpm 2017-12-18 Respiratory Rate 16 2017-12-18 BMI 38.61 kg/m2 2017-12-18 Blood pressure systolic 127 mmHg 2017-12-18 Blood pressure diastolic 72 mmHg 2017-12-18 MEDICATIONS Medication Instructions Dosage Frequency Start Date End Date Duration Status Lexapro 20 mg Orally Once a day 0.5 tablet daily x 2 weeks then 1 tab 24h Dec, 30 day(s) Active Wellbutrin SR 150 MG Orally Once a day 1 Tablet by Oral route 1 time per day for depression 24h 21 Oct, 2014 30 days Active cetirizine 10 mg 1 Tablet by Oral route 1 time per day Sep, Not-Taking Naprosyn 500 mg 1 tablet by Oral route 2 times per day PRN as needed for pain Apr, Not-Taking RESULTS No Results PROCEDURES No Known procedures INSTRUCTIONS MEDICATIONS ADMINISTERED No Known Medications MEDICAL (GENERAL) HISTORY Type Description Date Medical History depression Surgical History sectionX2 Hospitalization History child Hospitalization History dehydration Hospitalization History complications
--- OUTSIDE RECORDS SUMMARY | 2018-10-16 07:46 | XMS REPORT ---
Author Author [facility]LE HENSON [facility] Address [address] [place] [address] Care Team Providers Care Electrical Sign Wirer Name Role Phone COLE HENSON Unavailable PROBLEMS Type Condition ICD9-CM Code FLE16-CU Code Onset Dates Condition Status SNOMED Code Problem MMR DX V06.4 Active Problem Routine gynecological examination V72.31 Active 233863883503692 Problem Special screening examination, human papillomavirus [HPV] V73.81 Active 606580283 Problem Major depressive disorder, single episode, moderate F32.1 Active 28942307 Problem Nausea R11.0 Active 310256720 Problem Fatigue R53.83 Active 91986464 Problem Encounter for IUD removal Z30.432 Active 763424118 Problem Moderate episode of recurrent major depressive disorder F33.1 Active 988838628 Problem Tension headache G44.209 Active 745791270 Problem VARICELLA DX V05.4 Active Problem STATE HEP A (ADULT) DX V05.3 Active 520404593 Problem Health examination of defined subpopulation V70.5 Active 538209006 Problem DTAP TEST V06.1 Active Problem Major depressive disorder, recurrent episode, moderate 296.32 Active 00855502 Problem Major depressive disorder, single episode, moderate 296.22 Active 62055062 Problem Depressive disorder, not elsewhere classified 311 Active 05969478 Problem Screening for malignant neoplasm of the cervix V76.2 Active 115900080 Problem Obesity, unspecified 278.00 Active 969995906 Problem Surveillance of previously prescribed intrauterine contraceptive device V25.42 Active 176400602608178 ALLERGIES Substance Reaction Event Type Date Status Penicillins rash Non Drug Allergy Dec, Active Zoloft 100 Mg Tablet Yawning and Sedation Non Drug Allergy Dec, Active SOCIAL HISTORY Never Assessed PLAN OF CARE Activity Details Follow Up prn Reason: VITAL SIGNS Height 65.5 in 2016-12-08 Weight 260.7 lbs 2016-12-08 Temperature 96.8 degrees Fahrenheit 2016-12-08 Heart Rate 78 bpm 2016-12-08 Respiratory Rate 18 2016-12-08 BMI 42.72 kg/m2 2016-12-08 Blood pressure systolic 122 mmHg 2016-12-08 Blood pressure diastolic 60 mmHg 2016-12-08 MEDICATIONS Medication Instructions Dosage Frequency Start Date End Date Duration Status PredniSONE 20 mg Orally Once a day 3 tabs daily x 3 days, 2 tabs daily x 3 days, 1 tab daily x 3 days 24h Dec, Dec, 9 days Active RESULTS No Results PROCEDURES No Known procedures IMMUNIZATIONS No Known Immunizations MEDICAL (GENERAL) HISTORY Type Description Date Medical History depression Surgical History section Hospitalization History child Hospitalization History dehydration Hospitalization History complications
--- OUTSIDE RECORDS SUMMARY | 2018-10-16 07:46 | XMS REPORT ---
Author Author COLE HENSON [facility] Address [address] [place] [address] Care Team Providers Care Digital Asset Specialist Name Role Phone COLE HENSON Unavailable PROBLEMS Type Condition ICD9-CM Code LPA67-DV Code Onset Dates Condition Status SNOMED Code Problem Surveillance of previously prescribed intrauterine contraceptive device V25.42 Active 809287449429240 Problem Special screening examination, human papillomavirus [HPV] V73.81 Active 625307866 Problem MMR DX V06.4 Active Problem Major depressive disorder, single episode, moderate F32.1 Active 73984867 Problem Nausea R11.0 Active 162071103 Problem Encounter for IUD removal Z30.432 Active 766012812 Problem Routine gynecological examination V72.31 Active 544314830133244 Problem Tension headache G44.209 Active 059998065 Problem Fatigue R53.83 Active 45113604 Problem DTAP TEST V06.1 Active Problem VARICELLA DX V05.4 Active 958635784 Problem Health examination of defined subpopulation V70.5 Active 031207318 Problem Obesity, unspecified 278.00 Active 095077732 Problem Major depressive disorder, recurrent episode, moderate 296.32 Active 56348470 Problem STATE HEP A (ADULT) DX V05.3 Active 319344829 Problem Major depressive disorder, single episode, moderate 296.22 Active 48655809 Problem Depressive disorder, not elsewhere classified 311 Active 07861686 Problem Screening for malignant neoplasm of the cervix V76.2 Active 635711297 ALLERGIES Substance Reaction Event Type Date Status Penicillins rash Non Drug Allergy Feb, Active Zoloft 100 Mg Tablet Yawning and Sedation Non Drug Allergy Feb, Active ENCOUNTERS Encounter Location Date Diagnosis [facility] [place] [address] [id number] [place] [address] Feb BCP ( control pills) initiation Z30.011 and BMI 40.0-44.9, adult Z68.41 [facility] [address] [id number] [place] [address] Jan Moderate episode of recurrent major depressive disorder F33.1 and control counseling Z30.09 [facility] [place] [address] [id number] [place] [address] Dec [facility] [place] [address] [id number] [place] [address] Dec Major depressive disorder, single episode, moderate F32.1 [facility] [place] [address] [id number] [place] [address] Jul [facility] [place] [address] [id number] [place] [address] Jul Bladder pain R39.89 and Major depressive disorder, single episode, moderate F32.1 [facility] [address] [place], [place] [id number] [place] [address] May, [facility] [address] [facility] [id number] [place] [address] May, [facility] [place] [address] [id number] [place] [address] May Negative test Z32.02 ; Moderate episode of recurrent major depressive disorder F33.1 ; Nausea R11.0 and Other fatigue R53.83 [facility] [place] [address] [id number] [place] [address] Jan Trapezius muscle strain, right, initial encounter S46.811A and Trapezius muscle strain, left, initial encounter S46.812A [facility] [place] [address] [id number] [place] [address] Dec Tension headache G44.209 [facility] [place] [address] [id number] [place] [address] Feb [facility] [place] [address] [id number] [place] [address] Jan [facility] [place] [address] [id number] [place] [address] Jan Routine gynecological examination V72.31 ; Fatigue R53.83 ; Encounter for IUD removal Z30.432 and Acute vaginitis N76.0 [facility] [address] [address] 14 Feb, 2015 [facility] [address] [facility] [id number], [place] [address] 13 Feb, 2015 [facility] [id number] [place] [address] Sep, [facility] [address] [facility] [id number], [place] [address] Sep, [facility] [id number] [place] [address] Aug, [facility] [id number] [place] [address] Aug, [facility] [id number] [place] [address] Jul, [facility] [address]100[place], [place] [address] Jul, [facility] [address], [place] [address] Apr, [facility] [address]100[place], [place] [address] Apr, [facility] [address], [place] [address] Jan, [facility] [address] [id number], [place] [address] Jan, [facility] [address]100[place], [place] [address] Nov, [facility] [address] [facility] [id number], [place] [address] Nov, [facility] [address] [place] [address] 07 Sep, 2013 [facility] [address] [id number], [place] [address] 07 Sep, 2013 [facility] [address], [place] [address] Jul, [facility] [address], [place] [address] Jun, [facility] [address] [id number], [place] [address] Apr, [facility] [address], [place] [address] March, [facility] [id number] [place] [address] March, [facility] [address], [place] [address] March, [facility] [address], [place] [address] March, [facility] [address] [id number], [place] [address] Jun, IMMUNIZATIONS No Known Immunizations SOCIAL HISTORY Never Assessed REASON FOR VISIT control consult. ROBERT velasquez PLAN OF CARE Activity Details Follow Up 1 Year Reason: control Pending Test TEST, URINE (IN HOUSE) VITAL SIGNS Height 65.5 in 2018-02-21 Weight 260.3 lbs 2018-02-21 Temperature 98.4 degrees Fahrenheit 2018-02-21 Heart Rate 93 bpm 2018-02-21 Respiratory Rate 18 2018-02-21 Oximetry 100 % 2018-02-21 BMI 42.65 kg/m2 2018-02-21 Blood pressure systolic 122 mmHg 2018-02-21 Blood pressure diastolic 68 mmHg 2018-02-21 MEDICATIONS Medication Instructions Dosage Frequency Start Date End Date Duration Status Wellbutrin SR 150 MG Orally Once a day 1 Tablet by Oral route 1 time per day for depression 24h Aug, 30 days Active Sprintec 28 0.25-35 MG-MCG Orally Once a day 1 tablet 24h Feb, 28 day(s) Active Naprosyn 500 mg 1 tablet by Oral route 2 times per day PRN as needed for pain Apr, Not-Taking Lexapro 20 mg Orally Once a day 0.5 tablet daily x 2 weeks then 1 tab 24h Dec, 30 days Active cetirizine 10 mg 1 Tablet by Oral route 1 time per day Sep, Not-Taking BuPROPion HCl ER (SR) 150 MG TAKE 1 TABLET BY MOUTH ONCE DAILY FOR DEPRESSION 30 Not-Taking RESULTS No Results PROCEDURES Procedure Date Ordered Result Body Site URINE TEST February 21, 2018 INSTRUCTIONS MEDICATIONS ADMINISTERED No Known Medications MEDICAL (GENERAL) HISTORY Type Description Date Medical History depression Surgical History sectionX2 Hospitalization History child Hospitalization History dehydration Hospitalization History complications
--- OUTSIDE RECORDS SUMMARY | 2018-10-16 07:47 | XMS REPORT ---
Author Author COLE HENSON [facility] Address [address] [place] [address] Care Team Providers Care Call Center Recruiter Name Role Phone COLE HENSON Unavailable PROBLEMS Type Condition ICD9-CM Code MLU59-ZU Code Onset Dates Condition Status SNOMED Code Problem Surveillance of previously prescribed intrauterine contraceptive device V25.42 Active 964462732868171 Problem Special screening examination, human papillomavirus [HPV] V73.81 Active 641196567 Problem MMR DX V06.4 Active Problem Major depressive disorder, single episode, moderate F32.1 Active 60815970 Problem Nausea R11.0 Active 469973999 Problem Encounter for IUD removal Z30.432 Active 266420796 Problem Routine gynecological examination V72.31 Active 376173699955425 Problem Tension headache G44.209 Active 642859315 Problem Fatigue R53.83 Active 78425654 Problem DTAP TEST V06.1 Active Problem VARICELLA DX V05.4 Active 402472882 Problem Health examination of defined subpopulation V70.5 Active 551777601 Problem Obesity, unspecified 278.00 Active 084750400 Problem Major depressive disorder, recurrent episode, moderate 296.32 Active 35948827 Problem STATE HEP A (ADULT) DX V05.3 Active 443830734 Problem Major depressive disorder, single episode, moderate 296.22 Active 20402813 Problem Depressive disorder, not elsewhere classified 311 Active 11308304 Problem Screening for malignant neoplasm of the cervix V76.2 Active 885758068 ALLERGIES No Information ENCOUNTERS Encounter Location Date Diagnosis [facility] [address] [id number] [place] [address] 19 Feb 2018 BCP ( control pills) initiation Z30.011 and BMI 40.0-44.9, adult Z68.41 [facility] [address] [id number] [place] [address] 13 Jan 2018 Moderate episode of recurrent major depressive disorder F33.1 and control counseling Z30.09 [facility] [address] [id number] [place] [address] Dec [facility] [address] [id number] [place] [address] Dec Major depressive disorder, single episode, moderate F32.1 [facility] [address] [id number] [place] [address] Jul [facility] [address] [id number] [place] [address] Jul Bladder pain R39.89 and Major depressive disorder, single episode, moderate F32.1 [facility] [address] [id number] [place] [address] May, [facility] [address] [id number] [address] May, [facility] [address] [id number] [place] [address] May Negative test Z32.02 ; Moderate episode of recurrent major depressive disorder F33.1 ; Nausea R11.0 and Other fatigue R53.83 [facility] [address] [id number] [place] [address] Jan Trapezius muscle strain, right, initial encounter S46.811A and Trapezius muscle strain, left, initial encounter S46.812A [facility] [address] [id number] [place] [address] Dec Tension headache G44.209 [facility] [address] [id number] [place] [address] Feb [facility] [address] [id number] [place] [address] Jan [facility] [address] [id number] [place] [address] Jan Routine gynecological examination V72.31 ; Fatigue R53.83 ; Encounter for IUD removal Z30.432 and Acute vaginitis N76.0 [facility] [address] [facility] [id number] [place] [address] 14 Feb, 2015 [facility] [place] [facility] [address] [id number] [place] [address] Feb, [facility] [place] [facility] [address] [id number] [place] [address] Sep, [facility] [place] [facility] [address] [id number] [place] [address] Sep, [facility] [place] [facility] [address] [id number] [place] [address] Aug, [facility] [place] [facility] [address] [id number] [place] [address] Aug, [facility] [place] [facility] [address] [id number] [place] Jul, [facility] [place] [facility] [address] [id number] [place] [address] Jul, [facility] [place] [facility] [address] [id number] [place] [address] Apr, [facility] [place] [facility] [address] [id number] [place] [address] Apr, [facility] [place] [facility] [address] [id number] [place] [address] Jan, [facility] [place] [facility] [address] [id number] [place] [address] Jan, [facility] [place] [facility] [address] [id number] [place] [address] Nov, [facility] [place] [facility] [address] [id number] [place] [address] Nov, [facility] [place] [facility] [address] [id number] [place] [address] Sep, [facility] [place] [facility] [address] [id number] [place] [address] Sep, [facility] [address]00565100[place], [place] [address] Jul, [facility] [address]00565100[place], [place] [address] Jun, [facility] [address]00565100[place], [place] [address] Apr, [facility] [id number] [place] [address] March, [facility] [address] [place] [address] March, [facility] [address] [place] [address] March, [facility] [address]00565100[place], [place] [address] March, [facility] [address]00565100[place] [address] Jun, IMMUNIZATIONS No Known Immunizations SOCIAL HISTORY Never Assessed REASON FOR VISIT Requests return call PLAN OF CARE VITAL SIGNS MEDICATIONS Unknown Medications RESULTS No Results PROCEDURES No Known procedures INSTRUCTIONS MEDICATIONS ADMINISTERED No Known Medications MEDICAL (GENERAL) HISTORY Type Description Date Medical History depression Surgical History sectionX2 Hospitalization History child Hospitalization History dehydration Hospitalization History complications
--- OUTSIDE RECORDS SUMMARY | 2018-10-16 07:47 | XMS REPORT ---
Author Author COLE HENSON [facility] Address [address] [place] [address] Care Team Providers Care House Cleaner Supervisor Name Role Phone COLE HENSON Unavailable PROBLEMS Type Condition ICD9-CM Code LMZ38-RY Code Onset Dates Condition Status SNOMED Code Problem Surveillance of previously prescribed intrauterine contraceptive device V25.42 Active 490610470026589 Problem Special screening examination, human papillomavirus [HPV] V73.81 Active 602838567 Problem MMR DX V06.4 Active Problem Major depressive disorder, single episode, moderate F32.1 Active 33622866 Problem Nausea R11.0 Active 974761835 Problem Encounter for IUD removal Z30.432 Active 531783013 Problem Routine gynecological examination V72.31 Active 050969901462186 Problem Tension headache G44.209 Active 358464630 Problem Fatigue R53.83 Active 74817603 Problem DTAP TEST V06.1 Active Problem VARICELLA DX V05.4 Active 735776765 Problem Health examination of defined subpopulation V70.5 Active 357559305 Problem Obesity, unspecified 278.00 Active 643134533 Problem Major depressive disorder, recurrent episode, moderate 296.32 Active 95439378 Problem STATE HEP A (ADULT) DX V05.3 Active 161586624 Problem Major depressive disorder, single episode, moderate 296.22 Active 03409300 Problem Depressive disorder, not elsewhere classified 311 Active 59755234 Problem Screening for malignant neoplasm of the cervix V76.2 Active 156126807 ALLERGIES Substance Reaction Event Type Date Status Zoloft 100 Mg Tablet Yawning and Sedation Non Drug Allergy Jul, Active Penicillins rash Non Drug Allergy Jul, Active ENCOUNTERS Encounter Location Date Diagnosis [facility] [address] [id number] [place] [address] Feb BCP ( control pills) initiation Z30.011 and BMI 40.0-44.9, adult Z68.41 [facility] [address] [id number] [place] [address] Jan Moderate episode of recurrent major depressive disorder F33.1 and control counseling Z30.09 [facility] [address] [id number] [place] [address] Dec [facility] [address] [id number] [place] [address] Dec Major depressive disorder, single episode, moderate F32.1 [facility] [address] [id number] [place] [address] Jul [facility] [address] [id number] [place] [address] Jul Bladder pain R39.89 and Major depressive disorder, single episode, moderate F32.1 [facility] [address] [place], [place] [id number] [place] [address] May, [facility] [address] [facility] [id number] [place] [address] May, [facility] [address] [id number] [place] [address] May Negative test Z32.02 ; Moderate episode of recurrent major depressive disorder F33.1 ; Nausea R11.0 and Other fatigue R53.83 [facility] [address] [id number] [place] [address] Jan Trapezius muscle strain, right, initial encounter S46.811A and Trapezius muscle strain, left, initial encounter S46.812A [facility] [address] [id number] [place] [address] Dec Tension headache G44.209 [facility] [address] [id number] [place] [address] Feb [facility]ITALTail[facility] TechnologiesLea [facility] [address] [id number] [place] [address] Jan [facility] [address] [id number] [place] [address] Jan Routine gynecological examination V72.31 ; Fatigue R53.83 ; Encounter for IUD removal Z30.432 and Acute vaginitis N76.0 [facility] [address]00565100[place] 14 Feb, 2015 [facility] [place] [facility] [address] [facility] [id number] [address] 13 Feb, 2015 [facility] [id number] [place] [address] Sep, [facility] [facility] [address] [facility] [id number][place] [address] Sep, [facility] [facility] [id number] [place] [address] Aug, [facility] [id number] [place] [address] Aug, [facility] [id number] [place] [address] Jul, [facility] [address]00565100[place], [place] [address] Jul, [facility] [address]00565100[place], [place] [address] Apr, [facility] [address]00565100[place], [place] [address] Apr, [facility] [address]00565100[place], [place] [address] Jan, [facility] [address] [id number], [place] [address] Jan, [facility] [address]00565100[place], [place] [address] Nov, [facility] [facility] [address] [facility] [id number], [place] [address] Nov, [facility] [address] [place] [address] Sep, [facility] [address] [id number], [place] [address] Sep, [facility] [address] [id number], [place] [address] Jul, [facility] [address] [id number], [place] [address] Jun, [facility] [address]00565100[place], [place] [address] Apr, [facility] [address]00565100[place], [place] [address] March, [facility] [address]00565100[place], [place] [address] March, [facility] [address]00565100[place], [place] [address] March, [facility] [address]00565100[place], [place] [address] March, [facility] [address] [id number], [place] [address] Jun, IMMUNIZATIONS No Known Immunizations SOCIAL HISTORY Never Assessed REASON FOR VISIT possible UTI-UA - Richie Mcmillan RN PLAN OF CARE Activity Details Follow Up prn Reason: VITAL SIGNS Height 65.5 in 2017-07-06 Weight 234.2 lbs 2017-07-06 Temperature 98.3 degrees Fahrenheit 2017-07-06 Heart Rate 82 bpm 2017-07-06 Respiratory Rate 18 2017-07-06 BMI 38.38 kg/m2 2017-07-06 Blood pressure systolic 118 mmHg 2017-07-06 Blood pressure diastolic 72 mmHg 2017-07-06 MEDICATIONS Medication Instructions Dosage Frequency Start Date End Date Duration Status Zoloft 25 MG Orally Once a day 1 tablet 24h Jul, 30 day(s) Active Wellbutrin SR 150 MG Orally Once a day 1 Tablet by Oral route 1 time per day for depression 24h Aug, 30 days Active Bactrim DS 800-160 MG Orally 2 times a day 1 tablet 12h Jul,Jul 07 days Active RESULTS No Results PROCEDURES Procedure Date Ordered Result Body Site URINALYSIS, AUTO, W/O SCOPE Jul 06, 2017 URINE CULTURE/COLONY COUNT Jul 06, 2017 INSTRUCTIONS MEDICATIONS ADMINISTERED No Known Medications MEDICAL (GENERAL) HISTORY Type Description Date Medical History depression Surgical History sectionX2 Hospitalization History child Hospitalization History dehydration Hospitalization History complications
--- OUTSIDE RECORDS SUMMARY | 2018-10-16 07:47 | XMS REPORT ---
Author Author [facility]EN[facility] [address] [place] [address] Care Team Providers Care Patient Relations Coordinator Name Role Phone COLE HENSON Unavailable PROBLEMS Type Condition ICD9-CM Code COL69-EI Code Onset Dates Condition Status SNOMED Code Problem Surveillance of previously prescribed intrauterine contraceptive device V25.42 Active 313789615915902 Problem Special screening examination, human papillomavirus [HPV] V73.81 Active 858525468 Problem MMR DX V06.4 Active Problem Major depressive disorder, single episode, moderate F32.1 Active 13688191 Problem Nausea R11.0 Active 398274977 Problem Encounter for IUD removal Z30.432 Active 367215542 Problem Routine gynecological examination V72.31 Active 571616549940585 Problem Tension headache G44.209 Active 338313830 Problem Fatigue R53.83 Active 53760731 Problem DTAP TEST V06.1 Active Problem VARICELLA DX V05.4 Active 526136278 Problem Health examination of defined subpopulation V70.5 Active 311013053 Problem Obesity, unspecified 278.00 Active 022723934 Problem Major depressive disorder, recurrent episode, moderate 296.32 Active 57961420 Problem STATE HEP A (ADULT) DX V05.3 Active 269704139 Problem Major depressive disorder, single episode, moderate 296.22 Active 54531775 Problem Depressive disorder, not elsewhere classified 311 Active 29942862 Problem Screening for malignant neoplasm of the cervix V76.2 Active 668413714 ALLERGIES No Information ENCOUNTERS Encounter Location Date Diagnosis [facility] [address] [id number] [place] [address] 13 Jan Moderate episode of recurrent major depressive disorder F33.1 and control counseling Z30.09 [facility] [address] [id number] [place] [address] 13 Dec [facility] [address] [id number] [place] [address] Dec Major depressive disorder, single episode, moderate F32.1 [facility] [address] [id number] [place] [address] Jul [facility] [address] [id number] [place] [address] Jul Bladder pain R39.89 and Major depressive disorder, single episode, moderate F32.1 [facility] [address] [place], [place] [id number] [place] [address] May, [facility] [address] [id number] [address] May, [facility] [address] [id number] [place] [address] May Negative test Z32.02 ; Moderate episode of recurrent major depressive disorder F33.1 ; Nausea R11.0 and Other fatigue R53.83 [facility] [address] [id number] [place] [address] Jan Trapezius muscle strain, right, initial encounter S46.811A and Trapezius muscle strain, left, initial encounter S46.812A [facility] [address] [id number] [place] [address] Dec Tension headache G44.209 [facility] [address] [id number] [place] [address] Feb [facility] [address] [id number] [place] [address] Jan [facility] [address] [id number] [place] [address] Jan Routine gynecological examination V72.31 ; Fatigue R53.83 ; Encounter for IUD removal Z30.432 and Acute vaginitis N76.0 [facility] [address] [id number] [address] Feb, [facility] [address] [id number] [address] Feb, [facility] [place] [facility] [address] [id number] [place] [address] Sep, [facility] [place] [facility] [address] [id number] [place] [address] Sep, [facility] [place] [facility] [address] [id number] [place] [address] Aug, [facility] [place] [facility] [address] [id number] [place] [address] Aug, [facility] [place] [facility] [address] [id number] [place] Jul, [facility] [place] [facility] [address] [id number] [place] [address] Jul, [facility] [place] [facility] [address] [id number] [place] [address] Apr, [facility] [place] [facility] [address] [id number] [place] [address] Apr, [facility] [place] [facility] [address] [id number] [place] [address] Jan, [facility] [place] [facility] [address] [id number] [place] [address] Jan, [facility] [place] [facility] [address] [facility] [id number] [place] [address] Nov, [facility] [place] [facility] [address] [id number] [place] [address] Nov, [facility] [place] [facility] [address] [id number] [place] [address] Sep, [facility] [place] [facility] [address] [id number] [place] [address] 94[address] Sep, [facility] [place] [facility] [address] [facility] [id number] [place] [address] Jul, [facility] [place] [facility] [address] [id number] [place] [address] Jun, [facility] [address] [id number] [address] Apr, [facility] [address]00565100[place] [address] March, [facility] [address] [id number] March, [facility] [address]00565100[place] [address] March, [facility] [address] [id number] [address] March, [facility] [address] [id number] [address] Jun, IMMUNIZATIONS No Known Immunizations SOCIAL HISTORY [...]
[2018-10-16 10:28] LABS: BAND NEUTROPHILS 3 %; BASOPHILS % (MANUAL) 0 %; EOSINOPHILS % (MANUAL) 3 %; LYMPHOCYTES % (MANUAL) 5 %; MONOCYTES % (MANUAL) 5 %; NEUTROPHILS % (MANUAL) 81 %
[2018-10-16 10:29] LABS: RBC MORPH NORMAL; REACTIVE LYMPHOCYTES 3 %; TOXIC GRANULATION/VACUOLAZATIO 3+
== END 2018-10-15 17:47 | disposition home or self-care (01) ==
LOC: ER 15:49
DX: R11.2 Nausea with vomiting, unspecified (principal); R19.7 Diarrhea, unspecified; R10.13 Epigastric pain; F32.9 Major depressive disorder, single episode, unspecified; Z88.0 Allergy status to penicillin; Z98.890 Other specified postprocedural states; Z87.442 Personal history of urinary calculi
CPT/HCPCS: 36415; 76705; 80053; 81000; 83690; 84703; 85007; 85025; 85027; 96374; 96375

== ENCOUNTER → 2021-07-05 | Outpatient (CLI) | payer OTHER ==
[~2021-07-05] MED LIST: BUPR-42 PO; ESCI10TA PO; ONDA4TAB11 SL
--- NOTE | 2021-07-05 15:36 | Diagnostic Imaging Report ---
INDICATION: Low back pain. TIME OF EXAM: 3:19 p.m. FINDINGS: Three views of the lumbar spine show normal curvature and alignment. Vertebral body heights and disc spaces are well maintained. No fracture or subluxation is identified. IMPRESSION: No acute bony abnormality is detected. Dictated by: Dictated on workstation # [id number]
== END ==
LOC: RAD 14:52
DX: M54.5 Low back pain (principal)
CPT/HCPCS: 72100

== ENCOUNTER → 2023-02-20 | Outpatient (CLI) | payer OTHER ==
--- NOTE | 2023-02-20 16:36 | Diagnostic Imaging Report ---
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 TIME OF EXAM: 1:29 PM. COMPARISON: No prior studies are available for comparison. FINDINGS: The heart size is normal. The lungs are clear. No infiltrates are seen. There is no effusion or pneumothorax. There is S-shaped thoracolumbar scoliotic curvature. IMPRESSION: No acute cardiopulmonary process is detected. Dictated by: Dictated on workstation # [id number]
== END ==
LOC: RAD 12:48
PROVIDERS: ATTEND Internal Medicine
DX: R76.11 Nonspecific reaction to tuberculin skin test without active tuberculosis (principal)
CPT/HCPCS: 71045